=== PATIENT | male | born 1945 | race Caucasian/White ===

== ENCOUNTER 2017-08-29 18:09 | Emergency (ER) | payer MEDICARE, BC | END 2017-08-29 18:29 | disposition home or self-care (01) | LOC: SCSER 18:09 | DX: M10.9 Gout, unspecified (principal); E11.9 Type 2 diabetes mellitus without complications | CPT/HCPCS: 99283 ==

== ENCOUNTER 2018-04-12 14:13 | Emergency (ER) | payer MEDICARE, BC | END 2018-04-12 16:43 | disposition left against medical advice (07) | LOC: ERS 14:13 | DX: Z53.21 Procedure and treatment not carried out due to patient leaving prior to being seen by health care provider (principal) ==

== ENCOUNTER 2018-04-12 16:53 | Emergency (ER) | payer MEDICARE, BC ==
[2018-04-12] MEDS ORDERED: Morphine 4 MG/ML VIAL ONE (17:34)
[2018-04-12] MEDS ORDERED: Promethazine HCl 25 MG/ML VIAL ONE (17:34)
== END 2018-04-12 17:43 | disposition home or self-care (01) ==
LOC: SCSER 16:53
DX: M54.42 Lumbago with sciatica, left side (principal); I25.10 Atherosclerotic heart disease of native coronary artery without angina pectoris; K21.9 Gastro-esophageal reflux disease without esophagitis; M10.9 Gout, unspecified; I10 Essential (primary) hypertension; E11.9 Type 2 diabetes mellitus without complications; Z79.899 Other long term (current) drug therapy; Z79.891 Long term (current) use of opiate analgesic; Z79.82 Long term (current) use of aspirin
CPT/HCPCS: 96372; J2270; J2550

== ENCOUNTER 2018-05-21 11:52 | Outpatient (CLI) | payer MEDICARE, BC ==
[~2018-05-21 11:52] MED LIST: Gadobenate Dimeglumine 529 MG/1 ML (20ML VIAL) ONE
--- NOTE | 2018-05-21 15:13 | MRI ---
MRI LUMBAR SPINE WITH AND WITHOUT CONTRAST: DATE: 05-21-18 HISTORY: 72-year-old male with lumbar radiculopathy. COMPARISON: 04-07-13 noncontrast MRI. TECHNIQUE: Multiple sequences obtained in axial and sagittal planes, pre and post IV injection of gadolinium-bas ed contrast agent: 20 ml MultiHance FINDINGS: There are five lumbar type vertebrae. Vertebral body heights are maintained. No major spondylolisthes is. Bone marrow signal is normal. There is straightening of the normal curvature, similar to prior MR I. Conus medullaris terminates at upper L1 level. No significant scoliosis. No major pathology of per ivertebral spaces. T12-L1: Normal. L1-2: Normal. L2-3: Prominent posterior epidural fat pad. Otherwise normal. L3-4: Disc space maintained. Mild disc bulge encroachment upon bilateral neural foramina. Mild bilate ral neural foraminal stenosis. Mild central spinal canal stenosis. Posterior epidural fat pad. Mild t o moderate thecal sac stenosis. No major interval change. Normal disc signal. L4-5: No significant disc space narrowing. Diffuse disc desiccation. Diffuse disc bulge, larger than the ones at the levels superior to this, encroaching upon the bilateral neural foramina, causing mild bilateral neural foraminal stenosis. The disc bulge indents the ventral aspect of the thecal sac. Mi ld thickening of the right ligamentum flavum and moderate thickening of left ligamentum flavum, sligh tly greater than in 2013. Mild bilateral degenerative facet changes. Mild to moderate central spinal canal stenosis. Moderate thecal sac stenosis, slightly greater than on the prior MRI. L5-S1: Left hemilaminectomy defect. Degenerative retrolisthesis of L5 on S1 is similar to the previou s MRI. Mild disc space narrowing, slightly greater than previously. Disc desiccation. Mild right neur al foraminal stenosis. Moderate left neural foraminal stenosis, similar to previous study. Mild degen erative facet changes, left greater than right. As previously demonstrated, there is material in the left lateral recess, anterolateral epidural space, that contacts and surrounds the left S1 nerve root . The appearance is similar to that of the previous MRI. This was called a disc extrusion previously, without the benefit of IV contrast administration. The current MRI demonstrates that this material r epresents post-surgical enhancing scar tissue surrounding the nerve root, in addition to a central an d left paracentral small focal disc herniation. Overall, no major interval change. No high grade central stenosis. IMPRESSION: 1. Status post left hemilaminotomy at L5-S1. 2. Combination of scar tissue circumferentially surrounding the left S1 nerve root at the left latera l recess at L5-S1, plus a small central and left paracentral residual or recurrent disc protrusion co ntacting that nerve root. 3. Degenerative disc disease at L4-5 (mild) and L5-S1 (moderate). 4. The rest of the levels are essentially normal. JESUSITA Black POS: GIULIANA
== END 2018-05-21 11:53 | disposition home or self-care (01) ==
LOC: SCSMRI 11:52
PROVIDERS: ATTEND Neurological Surgery
DX: M51.16 Intervertebral disc disorders with radiculopathy, lumbar region (principal); M51.37 Other intervertebral disc degeneration, lumbosacral region; Z98.890 Other specified postprocedural states
CPT/HCPCS: 72158; 82565; A9579

== ENCOUNTER 2018-06-25 06:27 | Day surgery (SDC) | payer MEDICARE, BC ==
[2018-06-24 11:25] VITALS: BMI 36.3
--- NOTE | 2018-06-24 13:14 | HP ---
HISTORY OF PRESENT ILLNESS: Mr. Murdock is a 73-year-old man, who is known to our practice for distant lumbar decompression in 2013, who returns today for roughly 1-1/2 months of severe left lower extremity, L5 pains and numbness in his foot. He has new imaging from [place] that reveals left-sided disk herniation causing foraminal stenosis and compression of the exiting L5 nerve. This matches his symptom as well. He hopes to move forward with surgery to treat this. PAST MEDICAL HISTORY: Significant for hypercholesterolemia, diabetes, gout, coronary arterial disease, and hypertension. PAST SURGICAL HISTORY: Lumbar laminectomy x2, cardiac stents, and vasectomy. CURRENT MEDICATIONS: 1. Metformin. 2. Prilosec. 3. Potassium. 4. Furosemide. 5. Glipizide. 6. Atorvastatin. 7. Aspirin. 8. Metoprolol. 9. Tramadol. 10. Ibuprofen. ALLERGIES: NO KNOWN DRUG ALLERGIES. PHYSICAL EXAMINATION: GENERAL: The patient is alert and oriented x3. MUSCULOSKELETAL: Gait is severely antalgic. Lower extremity motor exam is essentially normal except he has some pain limiting weakness in the left lower extremity. Positive straight leg raise in the left lower extremity. ASSESSMENT: Lumbar radiculopathy. PLAN: Dr. Hunt met with the patient, reviewed imaging and advocated for left L5 diskectomy. He explained to the patient the risks, benefits, and alternatives of the procedure. The patient expressed understanding and elected to move forward with surgery as discussed. I do believe the patient is mentally competent and capable of making medical decisions for himself. We will move forward with surgery as planned. Job ID: [id number]
[2018-06-25] MEDS ORDERED: CEFAZOLIN 2 GM/50 ML BAG ONE ×2 (07:38→12:54)
[2018-06-25 08:11] LABS: Anion Gap 11 mmol/L (10-20); BUN (Urea Nitrogen) 12 mg/dL (8.4-25.7); Calc. Creatinine Clearance 124 mL/min (70-130); Calcium 9.5 mg/dL (7.8-10.44); Carbon Dioxide 26 mmol/L (23-31); Chloride 106 mmol/L (98-107); Estimated GFR-MDRD 88; Glucose 122 mg/dL (83-110); Potassium 4.4 mmol/L (3.5-5.1); Sodium 139 mmol/L (136-145)
[2018-06-25] MEDS ORDERED: Bupivacaine HCl 0.5%/Epinephrine 1:200,000/PF 30 ml Vial ONE (08:37)
[2018-06-25] MEDS ORDERED: Fentanyl 100 MCG/2 ML VIAL ONE (08:41)
[2018-06-25] MEDS ORDERED: Midazolam HCl 2 mg/2 ml Vial ONE ×4 (08:42→09:24)
[2018-06-25] MEDS ORDERED: Tamsulosin HCl 0.4 MG CAP ONE (10:20)
--- NOTE | 2018-06-25 10:29 | OP ---
DATE OF PROCEDURE: 06/25/2018 DIRECTORY CARRIER: Kwadwo Mendoza PA-C INDICATION: Pain. DIAGNOSIS: Lumbar radiculopathy. PROCEDURES: Reoperation left L5-S1 decompression, medial facetectomy. ANESTHESIA: General. DESCRIPTION OF PROCEDURE: The patient was brought in the operating room, placed under anesthesia. He was flipped from the supine to prone position on operating room table. A linear incision was planned over the L5-S1 area which encompassed a portion of our previous incision site. After prepping and draping and after a preoperative pause, the incision was created. The soft tissues were swept away from midline. A self-retaining retractor was placed in the wound for optimal exposure. After confirming the appropriate level C-arm fluoroscopy, high-speed cutting drill bit as well as 2, 3, and 4 mm Kerrison were used to extend the previous bone work at L5 extending down in the superior aspect of S1. It was extended laterally to encompass the medial half of the facet joint. There was a substantial degree of scar present from the patient's prior operation which I believe was a significant factor in the left S1 nerve root compression. This was removed until the descending S1 nerve root as well as the descending L5 and exiting L5 nerve roots were well decompressed. The wound was then irrigated. Hemostasis was maintained throughout. The wound was then closed in anatomic layers and a pressure dressing was applied. There were no known procedural complications. Job ID: [id number]
[2018-06-25] MEDS ORDERED: ePHEDrine/0.9% NaCl/PF SYRINGE 50 mg/10 ml ONE (16:22)
[2018-06-25] MEDS ORDERED: Rocuronium Bromide 10 MG/ML (10ML VIAL) ONE (16:22)
[2018-06-25] MEDS ORDERED: Dexamethasone 20 MG/5 ML VIAL ONE (16:22)
[2018-06-25] MEDS ORDERED: Lidocaine 1% PF 5 ML VIAL ONE (16:22)
[2018-06-25] MEDS ORDERED: Ondansetron PF 4 MG/2 ML Vial ONE (16:22)
[2018-06-25] MEDS ORDERED: PROPOFOL 200 MG/20 ML VIAL ONE (16:22)
[2018-06-25] MEDS ORDERED: Glycopyrrolate 0.2 MG/ML 5 ML SYRINGE ONE (16:22)
== END 2018-06-25 13:35 | disposition home or self-care (01) ==
LOC: SDC 06:27
PROVIDERS: ATTEND Neurological Surgery
PROC: 01NB0ZZ Release Lumbar Nerve, Open Approach (ICD-10-PCS; principal; 2018-06-25)
DX: M51.17 Intervertebral disc disorders with radiculopathy, lumbosacral region (principal); M48.061 Spinal stenosis, lumbar region without neurogenic claudication; G47.33 Obstructive sleep apnea (adult) (pediatric); K21.9 Gastro-esophageal reflux disease without esophagitis; I10 Essential (primary) hypertension; E78.00 Pure hypercholesterolemia, unspecified; E11.9 Type 2 diabetes mellitus without complications; M10.9 Gout, unspecified; I25.10 Atherosclerotic heart disease of native coronary artery without angina pectoris; Z79.82 Long term (current) use of aspirin; Z79.84 Long term (current) use of oral hypoglycemic drugs; Z79.899 Other long term (current) drug therapy; Z95.5 Presence of coronary angioplasty implant and graft; Z98.890 Other specified postprocedural states
CPT/HCPCS: 76000; 80048; J0670; J1100; J2001; J2250; J2405; J2704; J3010

== ENCOUNTER 2018-11-12 21:52 | Emergency (ER) | payer MEDICARE, BC ==
[2018-11-12 22:54] LABS: #Basophils 0.1 thou/uL (0.0-0.2); #Eosinphils 0.4 thou/uL (0.0-0.7); #Lymphocytes 2.4 thou/uL (1.20-3.40); #Monocytes 0.5 thou/uL (0.11-0.59); #Neutrophils 4.1 thou/uL (1.40-6.50); %Basophils 0.8 % (0.0-1.0); %Lymphocytes 31.9 % (21.0-51.0); %Monocytes 6.8 % (0.0-10.0); %Neutrophils 55.4 % (42.0-75.0); Hemoglobin 14.5 g/dL (14.0-18.0); Mean Corpuscular HGB CONC 34.4 g/dL (32.0-36.0); Mean Corpuscular Volume 90.2 fL (78.0-98.0); Mean Platelet Volume 8.6 fL (7.4-10.4); Platelet Count 189 thou/uL (130-400); RBC Distribution Width 11.3 % (11.5-14.5); Red Blood Cell (RBC) Count 4.68 mill/uL (4.70-6.10); White Blood Cell (WBC) Count 7.4 thou/uL (4.8-10.8)
[2018-11-12 22:59] LABS: Prothrombin Time 13.6 SEC (12.0-14.7)
[2018-11-12 23:00] LABS: PTT 34.2 SEC (22.9-36.1)
[2018-11-12 23:13] LABS: ALT (SGPT) 25 U/L (8-55); AST (SGOT) 18 U/L (5-34); Albumin 4.5 g/dL (3.4-4.8); Alkaline Phosphatase 65 U/L (40-150); Anion Gap 17 mmol/L (10-20); BUN (Urea Nitrogen) 11 mg/dL (8.4-25.7); Bilirubin, Total 0.8 mg/dL (0.2-1.2); CK (CPK) 109 U/L (30-200); Calc. Creatinine Clearance 0 mL/min (70-130); Calcium 9.7 mg/dL (7.8-10.44); Carbon Dioxide 23 mmol/L (23-31); Chloride 104 mmol/L (98-107); Estimated GFR-MDRD 79; Globulin 2.7 g/dL (2.4-3.5); Glucose 230 mg/dL (83-110); Potassium 3.8 mmol/L (3.5-5.1); Protein, Total 7.2 g/dL (5.8-8.1); Sodium 140 mmol/L (136-145)
[2018-11-12] MEDS ORDERED: diphenhydrAMINE 50 MG/ML VIAL ONE ×2 (23:14)
[2018-11-12] MEDS ORDERED: Adacel (T-DAP) 0.5 ML SYRINGE ONE (23:14)
[2018-11-12 23:46] LABS: Bilirubin Negative (Negative); Blood, Urine Negative (Negative); Clarity CLEAR (Clear); Glucose, Urine (Dipstick) >=1000 mg/dL (Negative); Leukocyte Negative (Negative); Nitrite Negative (Negative); Protein, Urine (Dipstick) Negative (Neg-Trace); pH, Urine 5.5 (5.0-9.0)
== END 2018-11-13 04:07 | disposition home or self-care (01) ==
LOC: ERS 21:52
DX: T63.061A Toxic effect of venom of other North and South American snake, accidental (unintentional), initial encounter (principal); K21.9 Gastro-esophageal reflux disease without esophagitis; M10.9 Gout, unspecified; E11.9 Type 2 diabetes mellitus without complications; I25.10 Atherosclerotic heart disease of native coronary artery without angina pectoris; Z79.899 Other long term (current) drug therapy; Z79.891 Long term (current) use of opiate analgesic; Z79.84 Long term (current) use of oral hypoglycemic drugs; Z79.82 Long term (current) use of aspirin
CPT/HCPCS: 36415; 80053; 81003; 82550; 85025; 85384; 85610; 85730; 86850; 86900; 86901; 90471; 90715; 93005; 96374; J1200